=== PATIENT | female | born 1935 | race Caucasian/White ===

== ENCOUNTER 2017-06-26 19:01 | Emergency (ER) | payer OTHER ==
--- NOTE | 2017-06-26 21:00 | EDPHY ---
H & P Time Seen by Provider: 06/26/17 19:48 HPI/ROS: CHIEF COMPLAINT: Right knee injury HISTORY OF PRESENT ILLNESS: 81-year-old female presents to the emergency department with injury to her right knee. The patient was at home with her dog was on a leash who then lunged toward another dog which caused the patient to fall directly on her right knee. She did not hit her head or lose consciousness. No reported presyncopal symptoms prior to her fall. She complains of isolated pain to the right knee with difficulty walking due to pain. Denies any other trauma or injury. She has had problems with this right knee in the past. ROS: Denies numbness or tingling in her toes, pain in her right ankle or hip. Past Medical/Surgical History: Pneumonia, benign ovarian tumor Social History: Smoking Status: Former smoker Physical Exam: Examination of the right knee reveals some mild swelling. There is some redness in a very superficial abrasion to the anterior aspect of her right knee. There is some mild swelling without significant effusion. Her patellar and quadriceps tendon appear intact. She is able to lift her right leg up without assistance. She has limited flexion of the right knee secondary to pain. She has pain with palpation as well in the lateral joint line. Nontender to palpate the medial joint line. No palpable crepitus. Difficult to assess ligament stability given her pain. Her right calf is nontender. Right ankle is nontender. Right hip is nontender. No pain with external or internal rotation of the right hip. Full range of motion of the left lower extremity and upper extremities bilaterally. Her is at bedside. She has no visible signs of trauma to her head. Constitutional: Initial Vital Signs Temperature (C) 37 C 06/26/17 19:07 Heart Rate 100 06/26/17 19:07 Respiratory Rate 16 06/26/17 19:07 Blood Pressure 159/89 H 06/26/17 19:07 O2 Sat (%) 90 L 06/26/17 19:07 O2 Delivery Mode Room Air Allergies/Adverse Reactions: No Allergies [NKA] Allergy (Verified 06/26/17 19:07) Home Medications: Medication Instructions Recorded ARIPiprazole [Abilify 2 mg (*)] 2 mg PO HS 07/12/14 MDM/Departure - MDM Imaging: I viewed and interpreted images myself ED Course/Re-evaluation: 81-year-old female presents after mechanical fall injuring her right knee. X- rays reveal arthritic changes without evidence of fracture. We attempted to put a straight leg knee immobilizer on, however the patient had more difficulty trying to ambulate with this on. She has a hinged knee immobilizer at home from previous right knee injury. She elected to use that. She will be discharged home with her and was given orthopedic referral. They have seen Dr. Marcus Butt in the past. They were also given referral to the on- call orthopedic surgeon. The and patient were comfortable being discharged. - Depart Disposition: Home, Routine, Self-Care Clinical Impression: Contusion of right knee Qualifiers: Encounter type: initial encounter Qualified Code(s): S80.01XA - Contusion of right knee, initial encounter Condition: Good Instructions: Contusion in Adults (ED) Additional Instructions: Knee immobilizer, weightbear as tolerated. Follow up with orthopedic surgeon later this week or early next week as discussed. Return to the emergency department if you developed any other change in symptoms or if you feel worse in any way. Referrals: Marcus Butt MD [Medical Doctor] - As per Instructions Carloz Greenwood MD [Medical Doctor] - 5-7 days, call for appt. (Orthopedic surgeon on-call)
[2017-06-26 21:21] VITALS: BP 180/102
== END 2017-06-26 21:20 | disposition home or self-care (01) ==
DX: S80.01XA Contusion of right knee, initial encounter (principal); Z87.891 Personal history of nicotine dependence; W18.39XA Other fall on same level, initial encounter; Y92.009 Unspecified place in unspecified non-institutional (private) residence as the place of occurrence of the external cause